=== PATIENT | male | born 1940 | race Hispanic/Latino ===

== ENCOUNTER 2016-11-18 09:23 | Day surgery (SDC) | payer MEDICARE ==
[2016-10-29 12:21] VITALS: BMI 33.0
[2016-11-18] MEDS ORDERED: Flumazenil 0.1 mg/ml Inj (5ml) IVP ONE ×2 (12:05→12:39)
[2016-11-18] MEDS ORDERED: Midazolam 2 MG/2 ML VIAL ONE (12:05)
[2016-11-18] MEDS ORDERED: Naloxone 0.4 mg/ml Inj (Adult) ONE (12:05)
[2016-11-18] MEDS ORDERED: Metoprolol 1 mg/ml Inj IVP ONE (12:05)
[2016-11-18] MEDS ORDERED: Midazolam 2 MG/2 ML VIAL IV ONE ×5 (12:13→12:30)
[2016-11-18] MEDS ORDERED: Naloxone 0.4 mg/ml Inj (Adult) IVP ONE (12:41)
[2016-11-18] MEDS ORDERED: Sodium Chloride 0.9% 1,000 ML IV SCH (13:00)
[2016-11-18 14:01] VITALS: RESP 18; TEMP 97.8
[2016-11-18 14:29] VITALS: BP 132/70; PULSE 54; O2SAT 98
--- NOTE | 2016-11-18 14:59 | CARD ---
APPROVED REPORT EXAM: Transesophageal echocardiogram with color flow Doppler and Synchronized Cardioversion. INDICATION Atrial Fibrillation 2D DIMENSIONS Left Atrium (2D)5.5 (1.6-4.0cm) Mitral Valve E/A ratio0.0 TDI E/Lateral E'0.0E/Medial E'0.0 Reason For Test : MAISHA before Cardioversion PROCEDURE After obtaining informed consent, patient underwent transesophageal echo in the Echo Lab. Type of Sedation : Conscious Sedation Sedation was administered by DR. schulte. Sedation was achieved with Versed and , Fentanyl 4 mg and 150 mcg intravenously. Transesophageal probe was inserted and advanced into esophagus without difficulty. Echo enhancement indication: R/O Septal defect. Echo enhancement agent administered: Agitated Saline The MAISHA was performed without complications. Complication encountered: Synchronized Cardioversion attempted: Successful Synchronized Cardioversion acheived with 200 Joules after first attempt(s). Rhythm following Synchronized Cardioversion: Normal Sinus Rhythm Throughout the procedure, the blood pressure, pulse oximetry, cardiac rhythm, and rate were monitored. The patient tolerated the procedure without adverse effects. Recovery from conscious sedation was uneventful and vital signs were stable. LEFT VENTRICLE The left ventricle is normal size. There is mild concentric left ventricular hypertrophy. Left ventricle systolic function is mildly impaired.EF-45% (Afib) There is normal LV segmental wall motion. A fib No left ventricle thrombus noted on this study. There is no ventricular septal defect visualized. There is no left ventricular aneurysm. There is no mass noted in the left ventricle. RIGHT VENTRICLE The right ventricle is mildly to moderately dilated. There is normal right ventricular wall thickness. Systolic function is mildly to moderately reduced. ATRIA The left atrium is moderately dilated. The right atrium is moderately dilated. Intact IAS by Bubble styudy, but intermittent Left to right Tiny shunt . AORTIC VALVE The aortic valve is mildly thickened. There is trace aortic regurgitation. There is no aortic valvular stenosis. There is no aortic valvular vegetation. MITRAL VALVE The mitral valve leaflets are thickened. There is no evidence of mitral valve prolapse. There is no mitral valve stenosis. Mitral regurgitation is mild to moderate. TRICUSPID VALVE The tricuspid valve is normal in structure. There is trace to mild tricuspid regurgitation. There is no tricuspid valve prolapse or vegetation. There is no tricuspid valve stenosis. PULMONIC VALVE The pulmonary valve is normal in structure. There is trace to mild pulmonic valvular regurgitation. There is no pulmonic valvular stenosis. GREAT VESSELS The aortic root is normal in size. The ascending aorta is normal in size. The pulmonary artery is normal. The IVC was not visualized. PERICARDIAL EFFUSION There is no pericardial effusion. There is no pleural effusion. <Conclusion> Dilated RA/LA/RV MIld LVH, EF-45% Mild to Moderate MR Trace to Moild PI Trace TR/AR. Mild plaque in descending aorta Veloctiy in [place] >0.4 m/s, Smoke noted in [place] No Cotraindication to cardioversion noted, 200 Synchronized Cardioversion done pt converted to NSR Reccomendation: continue anticoagulation for four weeks if remains in NSR. CC; Dr. Kelly catherine
--- NOTE | 2016-11-18 20:47 | CARD ---
APPROVED REPORT EKG Measurement Heart [id number] <Conclusion> Sinus bradycardia Left axis deviation Abnormal ECG
== END 2016-11-18 14:45 | disposition home or self-care (01) ==
LOC: TEE 09:23 → EDSTATUS 11:00 → TEE 14:45
PROVIDERS: ATTEND Internal Medicine Cardiovascular Disease
DX: I48.91 Unspecified atrial fibrillation (principal)
CPT/HCPCS: 92960; 93005; 93312; J2250; J2310; J3010; J7040

== ENCOUNTER 2017-02-10 19:25 | Emergency (ER) | payer MEDICARE ==
--- NOTE | 2017-02-10 19:38 | ED PDOC ---
Arrival/HPI - General Chief Complaint: Fever Time Seen by Provider: 02/10/17 19:26 Historian: Patient, Spouse - History of Present Illness Narrative History of Present Illness (Text): 02/10/17 19:38 This 76 year old male with a past medical history that includes hypertension and diabetes presents to the emergency department with his c/o fever, feeling fatigue, and dizzy x 8 hours. Denies sob, cp, abdominal pain, levy, recent travel, sick contact. Context: Home Past Medical History - Provider Review Nursing Documentation Reviewed: Yes - Tetanus Immunization Tetanus Immunization: Up to Date - Cardiac Hx Atrial Fibrillation: Yes Hx Hypertension: Yes - Pulmonary Hx Respiratory Disorders: No - Neurological Hx Paralysis: No - HEENT Hx HEENT Disorder: No - Renal Hx Renal Disorder: No - Endocrine/Metabolic Hx Endocrine Disorders: Yes Hx Diabetes Mellitus Type 2: Yes - Hematological/Oncological Hx Blood Transfusions: No Hx Blood Transfusion Reaction: No - Integumentary Hx Dermatological Disorder: No - Musculoskeletal/Rheumatological Hx Musculoskeletal Disorders: No - Gastrointestinal Hx Gastrointestinal Disorders: No - Genitourinary/Gynecological Hx Genitourinary Disorders: No - Psychiatric Hx Emotional Abuse: No Hx Physical Abuse: No Hx Substance Use: No - Surgical History Hx Cardiac Catheterization: Yes (0 stents) - Anesthesia Hx Anesthesia Reactions: No Hx Malignant Hyperthermia: No - Suicidal Assessment Feels Threatened In Home Enviroment: No Family/Social History - Physician Review Nursing Documentation Reviewed: Yes Family/Social History: Other (noncontributory) Smoking Status: Former Smoker Hx Alcohol Use: Yes (GLASS OF WINE WITH DINNER) Hx Substance Use: No Hx Substance Use Treatment: No Allergies/Home Meds Allergies/Adverse Reactions: Allergies No Known Allergies Allergy (Verified 02/28/16 14:43) Home Medications: Home Meds Medication Instructions Recorded Confirmed Simvastatin 40 mg PO DAILY 10/23/12 02/10/17 Aspirin [Aspirin Chewable] 81 mg PO DAILY 02/28/16 02/10/17 Gabapentin [Neurontin] 1 tab PO BID 02/28/16 02/10/17 Glipizide [Glipizide Xl] 10 mg PO BID 02/28/16 02/10/17 Insulin Lispro Mix 75/25 [HumaLOG 0 unit SC ACBHS 02/28/16 02/10/17 Mix 75/25] MetFORMIN [glucoPHAGE] 500 mg PO BID 02/28/16 02/10/17 Valsartan 320 mg PO DAILY 02/28/16 02/10/17 amLODIPine [Norvasc] 5 mg PO DAILY 02/28/16 02/10/17 Amiodarone HCl 1 tab PO DAILY 11/04/16 02/10/17 Tamsulosin HCl [Flomax] 1 tab PO DAILY 11/04/16 02/10/17 hydrALAZINE [Apresoline] 1 tab PO BID 11/04/16 02/10/17 Review of Systems - Review of Systems Constitutional: Fatigue, Fevers. absent: Weight Change Eyes: Normal. absent: Vision Changes ENT: Normal Respiratory: Normal. absent: SOB, Cough, Sputum, Wheezing Cardiovascular: Normal. absent: Chest Pain, Palpitations Gastrointestinal: Normal. absent: Abdominal Pain, Nausea, Vomiting Genitourinary Male: Normal. absent: Dysuria, Frequency, Hematuria Musculoskeletal: Normal. absent: Back Pain, Neck Pain Skin: Normal. absent: Rash Neurological: Dizziness. absent: Headache, Focal Weakness, Gait Changes, Speech Changes, Facial Droop, Seizure Endocrine: Normal Hemo/Lymphatic: Normal Psychiatric: Normal Physical Exam Vital Signs Temp Pulse Resp BP Pulse Ox 02/10/17 23:21 98.9 F 02/10/17 23:16 57 L 16 116/50 L 95 02/10/17 20:28 100.7 F H 02/10/17 19:32 100.7 F H 78 21 147/59 L 94 L 02/10/17 19:30 100.7 F H 73 18 147/59 L 95 Temperature: Febrile Blood Pressure: Hypertensive Pulse: Regular Respiratory Rate: Normal Appearance: Positive for: Well-Appearing, Non-Toxic, Comfortable Pain Distress: None Mental Status: Positive for: Alert and Oriented X 3 - Systems Exam Head: Present: Atraumatic, Normocephalic Pupils: Present: PERRL Extroacular Muscles: Present: EOMI Conjunctiva: Present: Normal Mouth: Present: Moist Mucous Membranes Neck: Present: Normal Range of Motion Respiratory/Chest: Present: Clear to Auscultation, Good Air Exchange. No: Respiratory Distress, Accessory Muscle Use Cardiovascular: Present: Regular Rate and Rhythm, Normal S1, S2. No: Murmurs Abdomen: Present: Normal Bowel Sounds. No: Tenderness, Distention, Peritoneal Signs Back: Present: Normal Inspection Upper Extremity: Present: Normal Inspection, Normal ROM. No: Cyanosis, Edema Lower Extremity: Present: Normal Inspection, Normal ROM. No: Edema Neurological: Present: GCS=15, CN II-XII Intact, Speech Normal, Motor Func Grossly Intact, Normal Sensory Function, Normal Cerebellar Funct, Gait Normal Skin: Present: Warm, Dry, Normal Color. No: Rashes Psychiatric: Present: Alert, Oriented x 3, Normal Insight, Normal Concentration Medical Decision Making ED Course and Treatment: 02/10/17 20:06 Patient stated he was seen by Dr. Guzman [employer] for A-fib early this year. A-fib has resolved with medication as per patient. Patient stated he had a normal stress test. His pmd is Jose Pagan 02/10/17 23:33 Patient stated his symptoms has improved. He does not feel dizzy at this time. He wishes to be discharge home soon. 02/11/17 00:[address] Wilson regarding patient c/o fever, dizziness. Patient's dizziness and fever have improved and patient wants to be discharge home. He stated he will be glad to see patient tomorrow. He agrees with plan to d/c patient home, and to have patient call office tomorrow for appointment. Patient is aware of plan. Re-evaluation Time: 00:11 Reassessment Condition: Re-examined, Improved - Lab Interpretations Lab Results: 02/10/17 20:15 02/10/17 20:15 Lab Results 02/10/17 23:05: Urine Color Yellow, Urine Appearance Clear, Urine pH 6.0, Ur Specific [place] 1.010, Urine Protein 30 H, Urine Glucose (UA) Negative, Urine Ketones Negative, Urine Blood Negative, Urine Nitrate Negative, Urine Bilirubin Negative, Urine Urobilinogen 0.2, Ur Leukocyte Esterase Negative, Urine RBC 0 - 2, Urine WBC 0 - 2, Ur Epithelial Cells 1 - 3 02/10/17 20:45: Influenza Typ A,B (EIA) Negative for flu a/b 02/10/17 20:15: Sodium 139, Chloride 101, Potassium 4.5, Carbon Dioxide 27, Anion Gap 16, BUN 19, Creatinine 1.0, Est GFR ( Amer) > 60, Est GFR (Non- Af Amer) > 60, Random Glucose 67 L, Calcium 9.1, Total Bilirubin 0.5, AST 20, ALT 35, Alkaline Phosphatase 72, Lactate Dehydrogenase 425, Total Creatine Kinase 62, Troponin I < 0.01, NT-Pro-B Natriuret Pep 243, Total Protein 6.8, Albumin 4.2, Globulin 2.7, Albumin/Globulin Ratio 1.6 02/10/17 20:15: pO2 117 H, VBG pH 7.40, VBG pCO2 48.0, VBG HCO3 29.7 H, VBG Total CO2 31.2 H, VBG O2 Sat (Calc) 97.0 H, VBG Base Excess 4.0 H, VBG Potassium 4.4, Sodium 137.0, Chloride 102.0, Glucose 71 L, Lactate 1.1, FiO2 21.0, Venous Blood Potassium 4.4 02/10/17 20:15: PT 11.6, INR 1.06, APTT 34.8 02/10/17 20:15: WBC 11.4 H D, RBC 4.12, Hgb 11.9 L, Hct 37.7 L, MCV 91.5, MCH 28.9, MCHC 31.6, RDW 13.5, Plt Count 187, MPV 10.6, Gran % 84.8 H, Lymph % (Auto ) 7.1 L, [place] % (Auto) 7.7 H, Eos % (Auto) 0.2 L, Baso % (Auto) 0.2, Gran # 9.63 H, Lymph # 0.8 L, [place] # 0.9 H, Eos # 0.0, Baso # 0.02 I have reviewed the lab results: Yes Interpretation: Abnormal lab values - RAD Interpretation Narrative RAD Interpretations (Text): 02/10/17 21:49 Patient Name / ID : CATHERINE SNYDER / [id number] Exam Date : 02/10/2017 20:31:31 ( Approved ) Study Comment : Sex / Age : M / 76Y Creator : LINUS ERNANDEZ Dictator : Sexual Assault Counselor : Medical Psychotherapist : LINUS ERNANDEZ Approver2 : Report Date : 02/10/2017 21:16:00 My Comment : [facility] Division of Radiology [address] [address] Tel. no. Patient Name: CLAUDIO ALEXANDER JR Pt. Address: [address] [place] [address] Rec #: [id number] [place] [address]: Nitin Pedroza PA-C Pt Order Location: ED : 1940 Male Age: 76 Order #: [id number] Reason for exam: fever Radiology CHEST PORTABLE Exam Date: 02/10/17 This imaging exam was performed at [facility] (Former[facility]) EXAM: XR Chest, 1 View EXAM DATE/TIME: 02/10/2017 7:58 PM CLINICAL HISTORY: 76 years old, male; Signs and symptoms; Fever TECHNIQUE: Frontal view of the chest. COMPARISON: There are no prior studies for comparison. FINDINGS: Heart: Heart size is accentuated by AP portable technique and shallow inspiration. Heart size is most likely normal Mediastinum: There is mild uncoiling of the aorta. The honey Vascularity: Pulmonary vascularity is normal. Lungs: Lungs are clear. Pleura: There is minimal pleural thickening at the right base with blunting of the right costophrenic angle. Osseous structures: There are degenerative changes in the osseus structures. IMPRESSION: No focal infiltrate; minimal pleural thickening at the right base , acute versus chronic Dictated By: Linus Ernandez MD, MD Dictated Date/Time: 02/10/172115 Signed By: Linus Ernandez MD Date Signed: 2115 Transcribed By: MERCY Transcribe Date/Time : 02/10/172115 LESA/ANITA 02/10/17 21:49 Patient Name / ID : CATHERINE SNYDER / [id number] Exam Date : 02/10/2017 21:10:23 ( Approved ) Study Comment : Sex / Age : M / 76Y Creator : LINUS ERNANDEZ Dictator : Sexual Assault Counselor : Medical Psychotherapist : LINUS ERNANDEZ Approver2 : Report Date : 02/10/2017 21:38:00 My Comment : [facility] Division of Radiology [address] [place] [address] Tel. no. Patient Name: CLAUDIO ALEXANDER JR Pt. Address: [address] [place] [address] Rec #: [id number] [place] [address]: Nitin Pedroza PA-C Pt Order Location: ED : 1940 Male Age: 76 Order #: [id number] Reason for exam: dizziness CT Scan HEAD W/O CONTRAST Exam Date: 02/10/17 This imaging exam was performed at [facility] ([facility] EXAM: CT Head Without Intravenous Contrast EXAM DATE/TIME: 02/10/2017 7:59 PM CLINICAL HISTORY: 76 years old, male; Signs and symptoms; Dizziness TECHNIQUE: Axial computed tomography images of the head/brain without intravenous contrast. All CT scans at this facility use one or more dose reduction techniques, viz.: automated exposure control; ma/kV adjustment per patient size (including targeted exams where dose is matched to indication; i.e. head); or iterative reconstruction technique. Coronal and sagittal reformatted images were created and reviewed. COMPARISON: There are no prior studies for comparison. FINDINGS: Artifacts: Streak artifact degrades image quality. Brain: There is prominence of sulci gyri and ventricles. There is no midline shift. There is decreased attenuation in periventricular white matter. There is focal encephalomalacia in the posterior right parietal lobe. There are no focal masses. There are no focal hemorrhages. Draper-white differentiation is visualized. Ventricles: See above Bones: Cranial vault is intact. Soft tissues: unremarkable Sinuses: There is no acute sinusitis. Ears and mastoids: Middle ears and mastoids are unremarkable. Orbits: Orbital contents are unremarkable. IMPRESSION: Old right posterior parietal infarct; mild atrophy and small vessel disease, no bleed Dictated By: Linus Ernandez MD Radiology Orders: 02/10/17 19:58 CHEST PORTABLE [RAD] Stat 02/10/17 19:59 HEAD W/O CONTRAST [CT] Stat - Medication Orders Current Medication Orders: Discontinued Medications Acetaminophen (Tylenol 325mg Tab) 975 mg PO STAT STA Stop: 02/10/17 19:38 Last Admin: 02/10/17 20:28 Dose: 975 mg MAR Pain/Vitals Document 02/10/17 20:28 HI (Rec: 02/10/17 20:29 [id number]) Pain Reassessment Is This A Pain ReAssessment? No Sleep Is patient sleeping during reassessment? No Presence of Pain Presence of Pain No Vitals Temperature (97.6 F-99.6 F) 100.7 F Temperature Source Oral Diphenhydramine HCl (Benadryl) 25 mg IVP STAT STA Stop: 02/10/17 20:01 Last Admin: 02/10/17 20:59 Dose: 25 mg IVP Administration Document 02/10/17 20:59 HI (Rec: 02/10/17 21:00 [id number]) Charges for Administration # of IVP Administrations 1 Sodium Chloride (Sodium Chloride 0.9%) 500 mls @ 999 mls/hr IV .Q31M STA Stop: 02/10/17 20:28 Last Admin: 02/10/17 20:29 Dose: 999 mls/hr eMAR Start Stop Document 02/10/17 20:29 HI (Rec: 02/10/17 20:29 [id number]) Intravenous Solution Start Date 02/10/17 Start Time 20:29 Metoclopramide HCl (Reglan) 10 mg IVP STAT STA Stop: 02/10/17 20:01 Last Admin: 02/10/17 21:00 Dose: 10 mg IVP Administration Document 02/10/17 21:00 HI (Rec: 02/10/17 21:00 [id number]) Charges for Administration # of IVP Administrations 1 Disposition/Present on Arrival - Present on Arrival Any Indicators Present on Arrival: No History of DVT/PE: No History of Uncontrolled Diabetes: No Urinary Catheter: No History of Decub. Ulcer: No History Surgical Site Infection Following: None - Disposition Have Diagnosis and Disposition been Completed?: Yes Diagnosis: Dizziness, Fever Disposition: HOME/ ROUTINE Disposition Time: 00:14 Patient Plan: Discharge Condition: GOOD Discharge Instructions (ExitCare): Dizziness (ED) Additional Instructions: Call private doctor for follow up visit tomorrow. Drink plenty of fluids, and rest. return to emergency if symptoms worsen. Take OTC Tylenol for fever as needed Referrals: Alesia Berrios, [Primary Care Provider] - Follow up with primary Jono Wilson MD [Staff Provider] - Follow up with primary Forms: [employer] (Czech)
[2017-02-10] MEDS ORDERED: Sodium Chloride 0.9% 500 ML IV STA (19:58)
[2017-02-10] MEDS ORDERED: DiphenhydrAMINE 50 mg/ml Inj IVP STA (20:00)
[2017-02-10 20:31] LABS: VENOUS BLOOD GAS PO2 117 mm/Hg (30-55)
[2017-02-10 20:32] LABS: BASO # 0.02 K/mm3 (0.0-2.0); BASO % 0.2 % (0.0-3.0); EOS % 0.2 % (1.5-5.0); GRAN # 9.63 (1.4-6.5); GRAN % 84.8 % (50.0-68.0); HEMOGLOBIN 11.9 g/dL (14.0-18.0); LYMPH # 0.8 (1.2-3.4); LYMPH % 7.1 % (22.0-35.0); MEAN CELL VOLUME 91.5 fl (80.0-105.0); MEAN CORPUSCULAR HEMOGLOBIN 28.9 pg (25.0-35.0); MEAN CORPUSCULAR HGB CONC 31.6 g/dl (31.0-37.0); MEAN PLATELET VOLUME 10.6 fl (7.0-11.0); MONO # 0.9 (0.1-0.6); MONO % 7.7 % (1.0-6.0); RBC 4.12 10^6/uL (3.5-6.1); RED CELL DISTRIBUTION WIDTH 13.5 % (11.5-14.5); WHITE BLOOD COUNT 11.4 10^3/ul (4.5-11.0)
[2017-02-10 20:42] LABS: ALB/GLOB RATIO 1.6 (1.1-1.8); ALBUMIN 4.2 g/dL (3.0-4.8); ALT/SGPT 35 U/L (7-56); AST/SGOT 20 U/L (17-59); BLOOD UREA NITROGEN 19 mg/dL (7-21); CALCIUM 9.1 mg/dL (8.4-10.5); GFR AFRICAN-AMERICAN > 60; GFR NON-AFRICAN AMERICAN > 60
[2017-02-10 20:49] LABS: INR 1.06 (0.93-1.08); PARTIAL THROMBOPLASTIN TIME 34.8 Seconds (25.1-36.5); PROTHROMBIN TIME 11.6 SECONDS (9.4-12.5)
[2017-02-10 20:52] LABS: B-TYPE NATRIURETIC PEPTIDE 243 pg/mL (0-450); TROPONIN I < 0.01 ng/mL
--- NOTE | 2017-02-10 21:16 | RAD ---
EXAM: XR Chest, 1 View EXAM DATE/TIME: 02/10/2017 7:58 PM CLINICAL HISTORY: 76 years old, male; Signs and symptoms; Fever TECHNIQUE: Frontal view of the chest. COMPARISON: There are no prior studies for comparison. FINDINGS: Heart: Heart size is accentuated by AP portable technique and shallow inspiration. Heart size is most likely normal Mediastinum: There is mild uncoiling of the aorta. The honey Vascularity: Pulmonary vascularity is normal. Lungs: Lungs are clear. Pleura: There is minimal pleural thickening at the right base with blunting of the right costophrenic angle. Osseous structures: There are degenerative changes in the osseus structures. IMPRESSION: No focal infiltrate; minimal pleural thickening at the right base, acute versus chronic
--- NOTE | 2017-02-10 21:38 | CT ---
EXAM: CT Head Without Intravenous Contrast EXAM DATE/TIME: 02/10/2017 7:59 PM CLINICAL HISTORY: 76 years old, male; Signs and symptoms; Dizziness TECHNIQUE: Axial computed tomography images of the head/brain without intravenous contrast. All CT scans at this facility use one or more dose reduction techniques, viz.: automated exposure control; ma/kV adjustment per patient size (including targeted exams where dose is matched to indication; i.e. head); or iterative reconstruction technique. Coronal and sagittal reformatted images were created and reviewed. COMPARISON: There are no prior studies for comparison. FINDINGS: Artifacts: Streak artifact degrades image quality. Brain: There is prominence of sulci gyri and ventricles. There is no midline shift. There is decreased attenuation in periventricular white matter. There is focal encephalomalacia in the posterior right parietal lobe. There are no focal masses. There are no focal hemorrhages. Draper-white differentiation is visualized. Ventricles: See above Bones: Cranial vault is intact. Soft tissues: unremarkable Sinuses: There is no acute sinusitis. Ears and mastoids: Middle ears and mastoids are unremarkable. Orbits: Orbital contents are unremarkable. IMPRESSION: Old right posterior parietal infarct; mild atrophy and small vessel disease, no bleed
[2017-02-10 23:14] LABS: URINE BILIRUBIN NEGATIVE (NEGATIVE); URINE BLOOD NEGATIVE (NEGATIVE); URINE GLUCOSE (UA) NEGATIVE (NEGATIVE); URINE LEUKOCYTE ESTERASE NEGATIVE Leu/uL (NEGATIVE); URINE NITRATE NEGATIVE (NEGATIVE); URINE PROTEIN 30 mg/dL (<30 mg/dL); URINE UROBILINOGEN 0.2 E.U./dL (<1 E.U./dL)
[2017-02-10 23:16] LABS: URINE APPEARANCE CLEAR (CLEAR)
[2017-02-10 23:17] LABS: URINE COLOR YELLOW (YELLOW)
[2017-02-10 23:18] VITALS: BP 116/50; PULSE 57; RESP 16; O2SAT 95
[2017-02-10 23:21] VITALS: TEMP 98.9
[2017-02-10 23:22] LABS: URINE RBC 0 - 2 /hpf (0-2); URINE WBC 0 - 2 /hpf (0-6)
--- NOTE | 2017-02-11 18:25 | CARD ---
APPROVED REPORT EKG Measurement Heart [id number] AR [id number] <Conclusion> Sinus rhythm with 1st degree AV block Left axis deviation Nonspecific intraventricular conduction delay Abnormal ECG
== END 2017-02-11 00:20 | disposition home or self-care (01) ==
LOC: ED 19:25
DX: R42 Dizziness and giddiness (principal); R50.9 Fever, unspecified; I10 Essential (primary) hypertension; E11.9 Type 2 diabetes mellitus without complications; Z87.891 Personal history of nicotine dependence
CPT/HCPCS: 70450; 71010; 80053; 81001; 82550; 82803; 83615; 83880; 84484; 85025; 85610; 85730; 87040; 87086; 87804; 93005; 96374; 96375; 99285; J1200; J2765; J7040

== ENCOUNTER 2017-08-14 12:28 | Emergency (ER) | payer MEDICARE ==
[2017-08-14 12:38] VITALS: BMI 33.0
--- NOTE | 2017-08-14 12:41 | ED PDOC ---
Arrival/HPI - General Time Seen by Provider: 08/14/17 12:36 Historian: Patient - History of Present Illness Narrative History of Present Illness (Text): 08/14/17 12:36 77yo male with pmhx of Afib, hypertension, Diabetes bib EMS for evaluation s/p trauma minutes [employer]. Patient states he slipped while cleaning his boat and landed on his buttocks. States while trying to stand up he fell again and landed on his flexed arms. He denies hitting his head on the floor. Denies any focal pain, states he came to ED for evaluation. He denies back pain, chest pain , LOC, headache, dizziness, nausea, vomiting, urinary/fecal incontinence, any other complaint. Past Medical History - Provider Review Nursing Documentation Reviewed: Yes - Tetanus Immunization Tetanus Immunization: Up to Date - Cardiac Hx Atrial Fibrillation: Yes Hx Hypertension: Yes - Pulmonary Hx Respiratory Disorders: No - Neurological Hx Paralysis: No - HEENT Hx HEENT Disorder: No - Renal Hx Renal Disorder: No - Endocrine/Metabolic Hx Endocrine Disorders: Yes Hx Diabetes Mellitus Type 2: Yes - Hematological/Oncological Hx Blood Transfusions: No Hx Blood Transfusion Reaction: No - Integumentary Hx Dermatological Disorder: No - Musculoskeletal/Rheumatological Hx Musculoskeletal Disorders: No - Gastrointestinal Hx Gastrointestinal Disorders: No - Genitourinary/Gynecological Hx Genitourinary Disorders: No - Psychiatric Hx Emotional Abuse: No Hx Physical Abuse: No Hx Substance Use: No - Surgical History Hx Cardiac Catheterization: Yes (0 stents) - Anesthesia Hx Anesthesia Reactions: No Hx Malignant Hyperthermia: No - Suicidal Assessment Feels Threatened In Home Enviroment: No Family/Social History - Physician Review Nursing Documentation Reviewed: Yes Family/Social History: Unknown Family HX Smoking Status: Former Smoker Hx Alcohol Use: Yes (GLASS OF WINE WITH DINNER) Hx Substance Use: No Hx Substance Use Treatment: No Allergies/Home Meds Allergies/Adverse Reactions: Allergies No Known Allergies Allergy (Verified 08/14/17 12:45) Home Medications: Home Meds Medication Instructions Recorded Confirmed Simvastatin 40 mg PO DAILY 10/23/12 02/10/17 Aspirin [Aspirin Chewable] 81 mg PO DAILY 02/28/16 02/10/17 Gabapentin [Neurontin] 1 tab PO BID 02/28/16 02/10/17 Glipizide [Glipizide Xl] 10 mg PO BID 02/28/16 02/10/17 Insulin Lispro Mix 75/25 [HumaLOG 0 unit SC ACBHS 02/28/16 02/10/17 Mix 75/25] MetFORMIN [glucoPHAGE] 500 mg PO BID 02/28/16 02/10/17 Valsartan 320 mg PO DAILY 02/28/16 02/10/17 amLODIPine [Norvasc] 5 mg PO DAILY 02/28/16 02/10/17 Amiodarone HCl 1 tab PO DAILY 11/04/16 02/10/17 Tamsulosin HCl [Flomax] 1 tab PO DAILY 11/04/16 02/10/17 hydrALAZINE [Apresoline] 1 tab PO BID 11/04/16 02/10/17 Review of Systems - Physician Review All systems were reviewed & negative as marked: Yes - Review of Systems Constitutional: Normal, Other (Evaluation s/p trauma) Eyes: Normal ENT: Normal Respiratory: Normal Cardiovascular: Normal Gastrointestinal: Normal Genitourinary Male: Normal Musculoskeletal: Normal Skin: Normal Neurological: Normal Endocrine: Normal Hemo/Lymphatic: Normal Psychiatric: Normal Physical Exam Vital Signs Reviewed: Yes Vital Signs Temp Pulse Resp BP Pulse Ox 08/14/17 12:38 98.4 F 70 18 134/72 96 Temperature: Afebrile Blood Pressure: Normal Pulse: Regular Respiratory Rate: Normal Appearance: Positive for: Well-Appearing, Non-Toxic, Comfortable Pain Distress: None Mental Status: Positive for: Alert and Oriented X 3 - Systems Exam Head: Present: Atraumatic, Normocephalic Pupils: Present: PERRL Extroacular Muscles: Present: EOMI Conjunctiva: Present: Normal Mouth: Present: Moist Mucous Membranes Neck: Present: Normal Range of Motion Respiratory/Chest: Present: Clear to Auscultation, Good Air Exchange. No: Respiratory Distress, Accessory Muscle Use Cardiovascular: Present: Regular Rate and Rhythm, Normal S1, S2. No: Murmurs Abdomen: No: Tenderness, Distention, Peritoneal Signs Back: Present: Normal Inspection Upper Extremity: Present: Normal Inspection. No: Cyanosis, Edema Lower Extremity: Present: Normal Inspection. No: Edema Neurological: Present: GCS=15, CN II-XII Intact, Speech Normal Skin: Present: Warm, Dry, Normal Color, Abrasion (Over left elbow. No TTP). No : Rashes Psychiatric: Present: Alert, Oriented x 3, Normal Insight, Normal Concentration Medical Decision Making ED Course and Treatment: 08/14/17 14:45 PT was neurologically intact and comfortable in ED. He denied any focal pain, but after head Ct was taken, pt also complained of left shoulder pain/soreness. He had no TTP. FROM. NVI. strength 5/5. Left shoulder xray - Ossification noted. On further DW the pt he notes history of bursitis on the shoulder. States he was advised to get surgery on his left shoulder, after the right shoulder surgery was done, but he declined surgery. He was offered a sling and he declined, stating he can rotate his arm well. Head CT - negative He was DC home and referred to ortho. - RAD Interpretation Radiology Orders: 08/14/17 12:41 HEAD W/O CONTRAST [CT] Stat 08/14/17 13:46 SHOULDER LEFT [RAD] Stat - Medication Orders Current Medication Orders: Discontinued Medications Tramadol HCl (Ultram) 50 mg PO STAT STA Stop: 08/14/17 13:48 Last Admin: 08/14/17 14:14 Dose: 50 mg ARTURO Pain Assessment Document 08/14/17 14:14 [facility] (Rec: 08/14/17 14:14 [facility] [id number]) Pain Reassessment Is this a pain reassessment? No Sleep Is patient sleeping during reassessment? No Presence of Pain Presence of Pain Yes Pain Scale Used Pain Scale Used Numeric Description Description Constant Intensity of Pain at present 8 Pain Behavior Rubbing Site Aggravating Factors Changing Position Exercise/Activity Disposition/Present on Arrival - Present on Arrival Any Indicators Present on Arrival: No History of DVT/PE: No History of Uncontrolled Diabetes: No Urinary Catheter: No History Surgical Site Infection Following: None - Disposition Have Diagnosis and Disposition been Completed?: Yes Diagnosis: Shoulder injury Disposition: HOME/ ROUTINE Disposition Time: 14:40 Patient Plan: Discharge Patient Problems: Current Active Problems Problem Status Onset Shoulder injury Acute Condition: STABLE Discharge Instructions (ExitCare): Shoulder Sprain Additional Instructions: Follow up with your Doctor/orthopedist Return to ED for any new or worsening symptoms Prescriptions: traMADol [Ultram] 50 mg PO TID #12 tab Referrals: Sai Molina MD [Staff Provider] - Follow up with primary
--- NOTE | 2017-08-14 13:47 | CT ---
PROCEDURE: CT HEAD WITHOUT CONTRAST. HISTORY: s/p trauma COMPARISON: 02/10/2017 CT head TECHNIQUE: Axial computed tomography images were obtained through the head/brain without intravenous contrast. Radiation dose: Total exam DLP = 849.57 mGy-cm. This CT exam was performed using one or more of the following dose reduction techniques: Automated exposure control, adjustment of the mA and/or kV according to patient size, and/or use of iterative reconstruction technique. FINDINGS: HEMORRHAGE: No intracranial hemorrhage. BRAIN: No mass effect or edema. Cortical atrophy, periventricular small vessel disease. 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 No hydrocephalus. CALVARIUM: Unremarkable. PARANASAL SINUSES: Unremarkable as visualized. No significant inflammatory changes. MASTOID AIR CELLS: Unremarkable as visualized. No inflammatory changes. OTHER FINDINGS: None. IMPRESSION: No acute intracranial abnormalities. No significant findings to account for the clinical presentation. No significant interval change compared to the prior examination(s).
[2017-08-14 14:45] VITALS: BP 120/64; PULSE 73; RESP 17; TEMP 98.3; O2SAT 99
--- NOTE | 2017-08-14 17:39 | RAD ---
PROCEDURE: Radiographs of the Left Shoulder HISTORY: shoulder pain s/p trauma COMPARISON: No prior. FINDINGS: BONES: Normal. No fracture. JOINTS: Severe acromioclavicular and glenohumeral degenerative change. SOFT TISSUES: Normal. OTHER FINDINGS: None. IMPRESSION: No acute findings related to/accounting for the clinical presentation.
== END 2017-08-14 14:52 | disposition home or self-care (01) ==
LOC: ED 12:28
DX: S49.92XA Unspecified injury of left shoulder and upper arm, initial encounter (principal); W01.0XXA Fall on same level from slipping, tripping and stumbling without subsequent striking against object, initial encounter; Y92.89 Other specified places as the place of occurrence of the external cause

== ENCOUNTER 2018-05-22 07:13 | Outpatient (CLI) | payer MEDICARE | END 2018-05-22 07:14 | disposition home or self-care (01) | LOC: CARDIO 07:13 ==

== ENCOUNTER 2018-06-19 06:42 | Day surgery (SDC) | payer MEDICARE ==
[2018-06-07 17:42] VITALS: BMI 32.5
--- NOTE | 2018-06-17 00:18 | HP ---
DATE OF EXAM: 06/16/2018 REASON FOR ADMISSION: Left heart catheterization, possible angioplasty, abnormal stress test. BRIEF CLINICAL HISTORY: This is a 77-year-old male with past medical history of diabetes, hypertension, hyperlipidemia, admitted for left cath and possible angioplasty because the recent stress test was abnormal. Patient has a history of diabetes. PAST MEDICAL HISTORY: Past history significant for diabetes, hypertension, hyperlipidemia, history of carotid artery endarterectomy in 2010, history of atrial fibrillation status post MAISHA cardioversion in the past. SOCIAL HISTORY: Denies any smoking. Denies any history of alcohol abuse. CURRENT MEDICATIONS: The patient is taking at home; amlodipine 5 mg daily, Flomax one tablet daily, simvastatin 40 mg daily, metformin 500 mg p.o. b.i.d., losartan 100 mg daily, levothyroxine 100 mcg daily, glipizide 10 mg daily, gabapentin 1 tablet daily, aspirin 81 mg, amiodarone 1 tablet daily. ALLERGIES: NO KNOWN DRUG ALLERGY. RECENT CARDIAC WORKUP: As follows; patient had a stress test dated 05/22/2018, probably abnormal myocardial perfusion study, partially reversible apical defect suspicious for ischemia, ejection fraction 50%. In comparison with the last study dated 12/30/2016, fixed defect appears partially reversible in the current study. Fixed defect previously now appears to be reversible. Patient had echocardiography dated 05/23/2018 that shows ejection fraction 62% with mild MR and mild TR. Patient had bilateral carotid Duplex that shows [id number] plaque formation in both left and right ICA, 40% to 49% stenosis is noted. REVIEW OF SYSTEMS: As per HPI. PHYSICAL EXAMINATION: GENERAL: Height of the patient 6 feet 1 inch, weight of the patient 247 pounds, and body mass index 32.6 kg/m2. VITAL SIGNS: Temperature afebrile, heart rate 60, and blood pressure 130/80. HEENT: PERRLA. Extraocular muscles intact. NECK: Supple. No carotid bruits or thyromegaly. CHEST: Clear to auscultation. HEART: S1 and S2 regular. ABDOMEN: Soft. EXTREMITIES: Clubbing and cyanosis negative. IMPRESSION AND PLAN: A 77-year-old morbidly obese male with past medical history significant for diabetes, hypertension, hyperlipidemia, history of atrial fibrillation status post MAISHA cardioversion on 11/18/2016. Recent abnormal stress, the patient is scheduled for elective cardiac catheterization and possible angioplasty. Echocardiogram shows ejection fraction of 62%, mild MR, and mild TR. Bilateral carotid Duplex 40% to 49%. Risk, benefit, alternatives discussed with the patient. Patient agreed to proceed with cardiac catheterization. Further recommendations after the cardiac catheterization. Risks, benefits, alternatives explained to the patient, patient agreed. We will proceed for cardiac catheterization. Thank you Dr. Wilson, for providing us the opportunity in taking care of the patient, Wilfred Bear. Juanita Larkin MD
[2018-06-19] MEDS ORDERED: Phenylephrine 10 mg/ml Inj ONE (07:16)
[2018-06-19] MEDS ORDERED: Lidocaine PF 2% (5 ml) Inj (For Cardiac Arrhy) ONE (07:16)
[2018-06-19] MEDS ORDERED: Verapamil 2 ML ONE (07:16)
[2018-06-19] MEDS ORDERED: Iodixanol 320 MG/ML 100 ML BOTTLE IV ONE (07:17)
[2018-06-19] MEDS ORDERED: Heparin 2,000 ML IV ONE (07:17)
[2018-06-19] MEDS ORDERED: Nitroglycerin 50mg in D5W 50 MG/250 ML BOTTLE IV ONE (07:17)
[2018-06-19] MEDS ORDERED: Iohexol 350mgl/ml 50 ML ONE (07:17)
[2018-06-19] MEDS ORDERED: Iodixanol 320 MG/ML 200 ML BOTTLE IV ONE (07:17)
[2018-06-19 07:20] LABS: BASO # 0.01 K/mm3 (0.0-2.0); BASO % 0.1 % (0.0-3.0); EOS # 0.1 (0.0-0.7); EOS % 1.8 % (1.5-5.0); HEMOGLOBIN 13.1 g/dL (14.0-18.0); LYMPH # 1.2 (1.2-3.4); LYMPH % 17.2 % (22.0-35.0); MEAN CELL VOLUME 89.2 fl (80.0-105.0); MEAN CORPUSCULAR HEMOGLOBIN 27.7 pg (25.0-35.0); MEAN PLATELET VOLUME 10.5 fl (7.0-11.0); MONO # 0.4 (0.1-0.6); MONO % 6.4 % (1.0-6.0); RBC 4.73 10^6/uL (3.5-6.1); RED CELL DISTRIBUTION WIDTH 13.2 % (11.5-14.5); WHITE BLOOD COUNT 6.7 10^3/uL (4.5-11.0)
[2018-06-19 07:28] LABS: INR 0.94; PARTIAL THROMBOPLASTIN TIME 36.4 Seconds (26.9-38.3); PROTHROMBIN TIME 10.6 SECONDS (9.4-12.5)
[2018-06-19 07:40] LABS: BLOOD UREA NITROGEN 22 mg/dL (7-21); CALCIUM 9.1 mg/dL (8.4-10.5); GFR NON-AFRICAN AMERICAN > 60; HDL CHOLESTEROL 35 mg/dL (29-60)
[2018-06-19 07:51] LABS: LDL CHOLESTEROL 67 mg/dL (0-129)
[2018-06-19] MEDS ORDERED: Midazolam 2 MG/2 ML VIAL ONE ×2 (08:15→08:24)
[2018-06-19] MEDS ORDERED: Bacitracin 500 Units/gm Oint Foilpak UD TOP ONE (08:58)
[2018-06-19] MEDS ORDERED: Sodium Chloride 0.9% 1,000 ML IV SCH (09:00)
[2018-06-19 09:32] VITALS: TEMP 97.8
[2018-06-19] MEDS ORDERED: GlipiZIDE 10 mg SR Tab PO SCH (10:00)
[2018-06-19] MEDS ORDERED: Levothyroxine 100 MCG TAB PO SCH (10:00)
[2018-06-19 10:10] VITALS: O2SAT 92
[2018-06-19 10:21] VITALS: RESP 18
[2018-06-19 11:10] VITALS: PULSE 46
--- NOTE | 2018-06-19 11:11 | CARD ---
APPROVED REPORT Date of service: 06/19/2018 EKG Measurement Heart [id number] NM [id number] [id number] <Conclusion> Baseline artifact Marked sinus bradycardia with 1st degree AV block Left axis deviation Nonspecific ST abnormality Abnormal ECG
[2018-06-19] MEDS ORDERED: Bacitracin 500 Units/gm Oint Foilpak UD ONE (11:20)
--- NOTE | 2018-06-19 11:20 | CPOSTOP ---
DATE: 06/19/2018 DICTATING PHYSICIAN: Juanita Larkin MD. FOLLOW UP REP: Mariana Banda. TYPE OF ANESTHESIA: Moderate conscious sedation. Total 3 mg of Versed and 150 of fentanyl given. PRE-PROCEDURE DIAGNOSES: Unstable angina and abnormal stress test. PROCEDURE PERFORMED: Left heart catheterization. FINDINGS: Nonobstructive coronary artery disease. FINAL DIAGNOSIS: Nonobstructive coronary artery disease. POST PROCEDURE CONDITION: The patient's condition is stable. VASCULAR ACCESS SITE: Left radial. CLOSURE DEVICE: TR band. TOTAL RADIATION DOSE: 8096.94 milligray unit. CUMULATIVE DOSE: 1022 milligray unit. FLUORO TIME: 2.4 minutes. Juanita Larkin MD
[2018-06-19 11:28] VITALS: BP 162/56
[2018-06-19] MEDS ORDERED: Insulin Reg-LOW-Coverage SC SCH (11:30)
--- NOTE | 2018-06-19 17:05 | CARD ---
APPROVED REPORT Date of service: 06/19/2018 Procedure(s) performed: Left Heart Catheterization HISTORY The patient is a 77 year-old male with a history of : most recent EF: 50%. (EF Method: RADIONUCLIDE), diabetes mellitus with insulin treatment , previous diagnostic cath, tobacco history() : The patient is a former smoker , hypertension , dyslipidemia , had an abnormal stress test apical ischemia.. INDICATION The indication(s) include : positive stress test. CASE TECHNIQUE The patient was brought electively to the Cardiac Catheterization Laboratory in a fasting state and was prepped and draped in a sterile manner. The left wrist was infiltrated with 2% Lidocaine subcutaneous anesthesia. A 6 Fr Prelude Transradial sheath was inserted into the left radial artery without difficulty. Coronary angiography was performed using coronary diagnostic catheters. The left coronary system was accessed and visualized with a Diagnostic,5F JL 4 CATH DXT 100 CM catheter. The right coronary system was accessed and visualized with a Diagnostic ,5F JR 4 CATH DXT 100 CM catheter. The left ventricle was accessed and visualized with a 5F PIGTAIL 145 CATH DXT 110 CM catheter. Left ventricular/Aortic Valve gradient assessed on pullback. Left ventriculogram was performed in [place] projection. The patient tolerated the procedure well and there were no complications associated with the procedure. Vessel Analysis The patient's coronary anatomy is co-dominant. The left main coronary artery is a large size vessel with diffuse calcification noted throughout this vessel and without significant stenosis. The left main trifurcates to the left anterior descending, circumflex, and ramus. The left anterior descending artery is a medium size vessel with diffuse calcification noted throughout this vessel and without significant stenosis. There is a 40% stenosis in the mid segment. The first diagonal branch is a medium size vessel with diffuse calcification noted throughout this vessel and without significant stenosis. The second diagonal branch is a medium size vessel with diffuse calcification noted throughout this vessel and without significant stenosis. The circumflex artery is a medium size vessel with diffuse calcification noted throughout this vessel and without significant stenosis. The first obtuse marginal branch is a medium size vessel with diffuse calcification noted throughout this vessel and without significant stenosis. There is a 60% stenosis in the ostial segment. The second obtuse marginal branch is a medium size vessel with diffuse calcification noted throughout this vessel and without significant stenosis. The left posterior descending artery is a medium size vessel with diffuse calcification noted throughout this vessel and without significant stenosis. The right coronary artery is a medium size vessel with diffuse calcification noted throughout this vessel and without significant stenosis. The right posterior descending artery is a small size vessel with diffuse calcification noted throughout this vessel and without significant stenosis. There is a 40-50% stenosis in the mid segment. The right posterolateral branch is a small size vessel with diffuse calcification noted throughout this vessel and without significant stenosis. Left Ventricle The left ventricle is normal in size with normal contractility. The left ventricular ejection fraction is estimated to be 55-60%. The left ventricular end diastolic pressure is 18 mmHg. There was no gradient across the aortic valve upon pullback. Conclusion Non obstructive CAD Moderate disease in Mid Lad, OM1 ostial and R PDA Preserved Lv Fx. EF-55-60%, EDP-18 mmof hg. Recommendations Aggressive Medical TherapyCardiac Risk Reduction Program Weight Loss Reduction Program Cc; Dr. Kelly catherine MD/ Megan.
== END 2018-06-19 14:00 | disposition home or self-care (01) ==
LOC: CATH 06:42
PROVIDERS: ATTEND Internal Medicine Cardiovascular Disease
DX: I25.110 Atherosclerotic heart disease of native coronary artery with unstable angina pectoris (principal); I10 Essential (primary) hypertension; E11.9 Type 2 diabetes mellitus without complications; E78.5 Hyperlipidemia, unspecified; I44.0 Atrioventricular block, first degree; I48.91 Unspecified atrial fibrillation; E66.01 Morbid (severe) obesity due to excess calories; Z68.32 Body mass index [BMI] 32.0-32.9, adult; Z79.4 Long term (current) use of insulin; Z79.82 Long term (current) use of aspirin; Z87.891 Personal history of nicotine dependence
CPT/HCPCS: 36415; 80048; 80061; 85025; 85610; 85730; 86850; 86900; 93005; 93458; 99152; C1769; C1894; J1644 ×2; J2250; J3010; J7030; J7040; Q9966; Q9967 ×2